=== PATIENT | male | born 1960 | race Caucasian/White ===

== ENCOUNTER 2018-04-02 10:50 | Outpatient (CLI) | payer OTHER | END 2018-04-02 12:57 | disposition home or self-care (01) | LOC: LAB 10:50 | DX: E78.2 Mixed hyperlipidemia (principal); E55.9 Vitamin D deficiency, unspecified; Z12.5 Encounter for screening for malignant neoplasm of prostate; M79.1 Myalgia; N39.0 Urinary tract infection, site not specified; Z13.6 Encounter for screening for cardiovascular disorders; Z12.11 Encounter for screening for malignant neoplasm of colon; Z11.3 Encounter for screening for infections with a predominantly sexual mode of transmission; E06.9 Thyroiditis, unspecified; M15.0 Primary generalized (osteo)arthritis; Z13.1 Encounter for screening for diabetes mellitus; E83.42 Hypomagnesemia ==

== ENCOUNTER 2019-12-20 15:41 | Outpatient (CLI) | payer OTHER | END 2019-12-20 15:46 | disposition home or self-care (01) | LOC: RAD 15:41 | PROVIDERS: ATTEND Internal Medicine | DX: S63.20 Unspecified subluxation of other finger (principal); S63.219A Subluxation of metacarpophalangeal joint of unspecified finger, initial encounter ==

== ENCOUNTER → 2020-03-16 09:05 | Outpatient (CLI) | payer OTHER | END | disposition home or self-care (01) | LOC: LAB 09:05 | PROVIDERS: ATTEND Internal Medicine | DX: N40.1 Benign prostatic hyperplasia with lower urinary tract symptoms (principal); Z20.828 Contact with and (suspected) exposure to other viral communicable diseases; E78.89 Other lipoprotein metabolism disorders; E55.9 Vitamin D deficiency, unspecified; Z13.818 Encounter for screening for other digestive system disorders; I10 Essential (primary) hypertension; E06.5 Other chronic thyroiditis; N39.0 Urinary tract infection, site not specified; Z11.3 Encounter for screening for infections with a predominantly sexual mode of transmission; K59.00 Constipation, unspecified; M25.50 Pain in unspecified joint; R73.09 Other abnormal glucose ==

== ENCOUNTER 2020-03-21 10:00 | Outpatient (CLI) | payer OTHER | END 2020-03-21 15:49 | disposition home or self-care (01) | LOC: PPH VACUNA 10:00 | DX: Z23 Encounter for immunization (principal) ==

== ENCOUNTER 2020-11-02 12:16 | Outpatient (CLI) | payer OTHER | END 2020-11-02 12:21 | disposition home or self-care (01) | LOC: LAB 12:16 | PROVIDERS: ATTEND Internal Medicine | DX: Z03.818 Encounter for observation for suspected exposure to other biological agents ruled out (principal) ==

== ENCOUNTER 2021-02-08 10:30 | Outpatient (CLI) | payer OTHER | END 2021-02-08 20:21 | disposition home or self-care (01) | LOC: LAB 10:30 | DX: I10 Essential (primary) hypertension (principal); N39.0 Urinary tract infection, site not specified; E06.5 Other chronic thyroiditis; E78.89 Other lipoprotein metabolism disorders; N40.1 Benign prostatic hyperplasia with lower urinary tract symptoms ==

== ENCOUNTER 2021-03-21 08:00 | Outpatient (CLI) | payer OTHER | END 2021-03-21 08:30 | disposition home or self-care (01) | LOC: PPH VACUNA 08:00 | PROVIDERS: ATTEND Emergency Medicine Pediatric Emergency Medicine | DX: Z23 Encounter for immunization (principal) ==

== ENCOUNTER 2021-07-05 09:18 | Outpatient (CLI) | payer OTHER | END 2021-07-05 09:19 | disposition home or self-care (01) | LOC: LAB 09:18 | PROVIDERS: ATTEND Internal Medicine | DX: E78.89 Other lipoprotein metabolism disorders (principal); K76.0 Fatty (change of) liver, not elsewhere classified; M15.0 Primary generalized (osteo)arthritis ==

== ENCOUNTER 2021-09-27 08:36 | Outpatient (CLI) | payer OTHER | END 2021-09-27 08:49 | disposition home or self-care (01) | LOC: LAB 08:36 | PROVIDERS: ATTEND Internal Medicine | DX: E78.9 Disorder of lipoprotein metabolism, unspecified (principal); E55.9 Vitamin D deficiency, unspecified; I10 Essential (primary) hypertension; N39.0 Urinary tract infection, site not specified ==

== ENCOUNTER 2021-11-11 13:15 | Outpatient (CLI) | payer OTHER | END 2021-11-11 13:45 | disposition home or self-care (01) | LOC: PPH VACUNA 13:15 | PROVIDERS: ATTEND Emergency Medicine Pediatric Emergency Medicine | DX: Z23 Encounter for immunization (principal) ==

== ENCOUNTER 2022-02-07 10:01 | Outpatient (CLI) | payer OTHER | END 2022-02-07 10:13 | disposition home or self-care (01) | LOC: LAB 10:01 | PROVIDERS: ATTEND Internal Medicine | DX: E78.2 Mixed hyperlipidemia (principal); I10 Essential (primary) hypertension; N39.0 Urinary tract infection, site not specified ==

== ENCOUNTER 2022-03-09 10:26 | Outpatient (CLI) | payer OTHER | END 2022-03-09 10:36 | disposition home or self-care (01) | LOC: PPH VACUNA 10:26 | PROVIDERS: ATTEND Emergency Medicine Pediatric Emergency Medicine | DX: Z23 Encounter for immunization (principal) ==

== ENCOUNTER 2022-05-23 10:40 | Outpatient (CLI) | payer OTHER | END 2022-05-23 11:09 | disposition home or self-care (01) | LOC: LAB 10:40 | PROVIDERS: ATTEND Internal Medicine | DX: E78.3 Hyperchylomicronemia (principal); R73.9 Hyperglycemia, unspecified; E78.6 Lipoprotein deficiency; N39.0 Urinary tract infection, site not specified; E06.9 Thyroiditis, unspecified; E78.2 Mixed hyperlipidemia; E78.49 Other hyperlipidemia ==

== ENCOUNTER 2022-11-28 09:41 | Outpatient (CLI) | payer OTHER | END 2022-11-28 10:09 | disposition home or self-care (01) | LOC: LAB 09:41 | PROVIDERS: ATTEND Internal Medicine | DX: N40.1 Benign prostatic hyperplasia with lower urinary tract symptoms (principal); I10 Essential (primary) hypertension; E11.9 Type 2 diabetes mellitus without complications; R79.82 Elevated C-reactive protein (CRP); E78.9 Disorder of lipoprotein metabolism, unspecified; N39.0 Urinary tract infection, site not specified; E78.41 Elevated Lipoprotein(a); Z12.11 Encounter for screening for malignant neoplasm of colon ==

== ENCOUNTER 2023-06-15 01:50 | Outpatient (CLI) | payer OTHER | END 2023-06-15 02:00 | disposition home or self-care (01) | LOC: PPH VACUNA 01:50 | PROVIDERS: ATTEND Emergency Medicine Pediatric Emergency Medicine | DX: Z23 Encounter for immunization (principal) | CPT/HCPCS: 90686; G0008 ==

== ENCOUNTER → 2023-07-24 09:49 | Outpatient (CLI) | payer OTHER ==
[2023-07-24 12:39] LABS: HEMATOCRIT 43.3 % (39.0-48.0); MEAN CELL VOLUME 88.6 fL (80.0-100.00); MEAN CORPUSCULAR HEMOGLOBIN 30.6 pg (27.00-32.0); MEAN CORPUSCULAR HGB CONC 34.6 g/dl (32.0-36.0); PLATELET COUNT 251 K/uL (150-450); RED BLOOD COUNT 4.89 M/uL (4.00-6.00); RED CELL DISTRIBUTION WIDTH 12.9 % (11.5-14.5)
[2023-07-24 13:12] LABS: URINE APPEARANCE Clear; URINE BILIRRUBIN Negative (NEGATIVE); URINE BLOOD Negative; URINE COLOR Yellow; URINE GLUCOSE Negative (NEGATIVE); URINE LEUKOCYTE Negative; URINE NITRATE Negative; URINE PROTEIN Negative (NEGATIVE); URINE UROBILINOGEN 0.2 E.U./dl
[2023-07-24 13:18] LABS: URINE BACTERIA 2.5 uL (0.0-1933); URINE EPITHELIAL CELLS 0.1 uL (0.0-38.8); URINE RBC 1.7 uL (0.0-20.8); URINE WBC 0.6 uL (0.0-23.2)
[2023-07-24 13:24] LABS: ALBUMIN 4.1 gm/dL (3.4-5.0); BILIRUBIN TOTAL 1.18 mg/dL (0.3-1.2); CALCIUM 9.2 mg/dL (8.5-10.1); CHOL HDL RATIO 3.7 (0-5.0); CREATININE SERUM 0.88 mg/dL (0.70-1.30); GFR 87.75; GLOBULINA 3.8 G/DL (2.4-3.5); POTASSIUM 4.07 mEq/L (3.5-5.1); PROSTATIC SPECIFIC ANTIGEN 2.17 NG/ML (0.010-4.00); TOTAL PROTEIN 7.9 gm/dL (6.4-8.2); TSH 0.58 uIU/mL (0.358-3.74)
[2023-07-24 13:30] LABS: C-REACTIVE PROTEIN 0.31 MG/DL (0.00-0.29)
== END | disposition home or self-care (01) ==
LOC: LAB 09:49
PROVIDERS: ATTEND Internal Medicine
DX: I10 Essential (primary) hypertension (principal); N39.0 Urinary tract infection, site not specified; D64.9 Anemia, unspecified; R73.9 Hyperglycemia, unspecified; E78.9 Disorder of lipoprotein metabolism, unspecified; Z01.89 Encounter for other specified special examinations; Z11.3 Encounter for screening for infections with a predominantly sexual mode of transmission; E78.41 Elevated Lipoprotein(a); E78.2 Mixed hyperlipidemia; E78.01 Familial hypercholesterolemia

== ENCOUNTER → 2024-04-07 12:16 | Outpatient (CLI) | payer OTHER ==
[2024-04-07 12:51] LABS: HEMATOCRIT 48.8 % (39.0-48.0); HEMOGLOBIN 16.9 g/dL (13-16.00); MEAN CELL VOLUME 89.8 fL (80.0-100.00); MEAN CORPUSCULAR HEMOGLOBIN 31.1 pg (27.00-32.0); MEAN CORPUSCULAR HGB CONC 34.7 g/dl (32.0-36.0); RED BLOOD COUNT 5.44 M/uL (4.00-6.00); RED CELL DISTRIBUTION WIDTH 12.9 % (11.5-14.5)
[2024-04-07 13:03] LABS: PLATELET COUNT 44 K/uL (150-450)
[2024-04-07 13:28] LABS: MANUAL PLATELET COUNT 68
== END | disposition home or self-care (01) ==
LOC: LAB 12:16
PROVIDERS: ATTEND Internal Medicine
DX: A90 Dengue fever [classical dengue] (principal)

== ENCOUNTER 2024-04-08 13:57 | Outpatient (CLI) | payer OTHER ==
[2024-04-08 14:43] LABS: HEMATOCRIT 45.7 % (39.0-48.0); HEMOGLOBIN 15.7 g/dL (13-16.00); MEAN CELL VOLUME 89.1 fL (80.0-100.00); MEAN CORPUSCULAR HEMOGLOBIN 30.7 pg (27.00-32.0); MEAN CORPUSCULAR HGB CONC 34.4 g/dl (32.0-36.0); RED BLOOD COUNT 5.12 M/uL (4.00-6.00); RED CELL DISTRIBUTION WIDTH 13.2 % (11.5-14.5)
[2024-04-08 15:54] LABS: PLATELET COUNT 71 K/uL (150-450)
[2024-04-08 16:28] LABS: MANUAL PLATELET COUNT 106
== END 2024-04-08 14:06 | disposition home or self-care (01) ==
LOC: LAB 13:57
PROVIDERS: ATTEND Internal Medicine
DX: A90 Dengue fever [classical dengue] (principal)

== ENCOUNTER 2024-04-10 12:54 | Outpatient (CLI) | payer OTHER ==
[2024-04-10 13:18] LABS: HEMATOCRIT 45.1 % (39.0-48.0); HEMOGLOBIN 15.6 g/dL (13-16.00); MEAN CELL VOLUME 89.9 fL (80.0-100.00); MEAN CORPUSCULAR HEMOGLOBIN 31.1 pg (27.00-32.0); MEAN CORPUSCULAR HGB CONC 34.6 g/dl (32.0-36.0); PLATELET COUNT 142 K/uL (150-450); RED BLOOD COUNT 5.02 M/uL (4.00-6.00); RED CELL DISTRIBUTION WIDTH 13.3 % (11.5-14.5)
[2024-04-10 14:01] LABS: MANUAL PLATELET COUNT 304
== END 2024-04-10 13:05 | disposition home or self-care (01) ==
LOC: LAB 12:54
PROVIDERS: ATTEND Internal Medicine
DX: A90 Dengue fever [classical dengue] (principal)

== ENCOUNTER 2024-04-20 10:22 | Outpatient (CLI) | payer OTHER ==
[2024-04-20 11:05] LABS: HEMATOCRIT 44.4 % (39.0-48.0); HEMOGLOBIN 15.2 g/dL (13-16.00); MEAN CELL VOLUME 89.3 fL (80.0-100.00); MEAN CORPUSCULAR HEMOGLOBIN 30.5 pg (27.00-32.0); MEAN CORPUSCULAR HGB CONC 34.2 g/dl (32.0-36.0); PLATELET COUNT 425 K/uL (150-450); RED BLOOD COUNT 4.97 M/uL (4.00-6.00); RED CELL DISTRIBUTION WIDTH 13.5 % (11.5-14.5)
[2024-04-20 11:39] LABS: MANUAL PLATELET COUNT 730
[2024-04-20 12:14] LABS: ALBUMIN 3.2 gm/dL (3.4-5.0); BILIRUBIN TOTAL 0.68 mg/dL (0.3-1.2); CALCIUM 8.3 mg/dL (8.5-10.1); CREATININE SERUM 0.92 mg/dL (0.70-1.30); GFR 83.36; GLOBULINA 5.2 G/DL (2.4-3.5); POTASSIUM 4.09 mEq/L (3.5-5.1); TOTAL PROTEIN 8.4 gm/dL (6.4-8.2); TSH 1.46 uIU/mL (0.358-3.74)
== END 2024-04-20 14:32 | disposition home or self-care (01) ==
LOC: LAB 10:22
PROVIDERS: ATTEND Internal Medicine
DX: R73.09 Other abnormal glucose (principal); E06.9 Thyroiditis, unspecified; A91 Dengue hemorrhagic fever; R06.02 Shortness of breath; I10 Essential (primary) hypertension; D84.9 Immunodeficiency, unspecified

== ENCOUNTER 2024-04-20 10:42 | Outpatient (CLI) | payer OTHER | END 2024-04-20 11:05 | disposition home or self-care (01) | LOC: TOM 10:42 | PROVIDERS: ATTEND Radiology Diagnostic Radiology | DX: G44.85 Primary stabbing headache (principal); G44.89 Other headache syndrome; R06.02 Shortness of breath; R52 Pain, unspecified ==

== ENCOUNTER 2024-04-21 07:50 | Outpatient (CLI) | payer OTHER | END 2024-04-21 07:53 | disposition home or self-care (01) | LOC: NUCLEAR 07:50 | PROVIDERS: ATTEND Internal Medicine | DX: I20.9 Angina pectoris, unspecified (principal) ==

== ENCOUNTER 2024-04-24 08:53 | Outpatient (CLI) | payer OTHER ==
[2024-04-24 09:39] LABS: HEMATOCRIT 43.3 % (39.0-48.0); HEMOGLOBIN 14.9 g/dL (13-16.00); MEAN CELL VOLUME 88.5 fL (80.0-100.00); MEAN CORPUSCULAR HEMOGLOBIN 30.4 pg (27.00-32.0); MEAN CORPUSCULAR HGB CONC 34.4 g/dl (32.0-36.0); PLATELET COUNT 351 K/uL (150-450); RED BLOOD COUNT 4.89 M/uL (4.00-6.00); RED CELL DISTRIBUTION WIDTH 13.7 % (11.5-14.5)
[2024-04-24 10:13] LABS: MANUAL PLATELET COUNT 678
[2024-04-24 10:23] LABS: INR 1.08; PROTHROMBIN TIME 11.7 SECONDS (9.0-11.5)
[2024-04-24 10:52] LABS: ALBUMIN 3.2 gm/dL (3.4-5.0); BILIRUBIN TOTAL 0.95 mg/dL (0.3-1.2); CALCIUM 8.7 mg/dL (8.5-10.1); CREATININE SERUM 0.96 mg/dL (0.70-1.30); GFR 79.37; GLOBULINA 5.3 G/DL (2.4-3.5); POTASSIUM 4.3 mEq/L (3.5-5.1); TOTAL PROTEIN 8.5 gm/dL (6.4-8.2)
== END 2024-04-24 15:32 | disposition home or self-care (01) ==
LOC: LAB 08:53
PROVIDERS: ATTEND Internal Medicine
DX: R94.5 Abnormal results of liver function studies (principal); A90 Dengue fever [classical dengue]

== ENCOUNTER 2024-05-04 09:18 | Outpatient (CLI) | payer OTHER ==
[2024-05-04 09:56] LABS: HEMATOCRIT 41.7 % (39.0-48.0); HEMOGLOBIN 14.4 g/dL (13-16.00); MEAN CORPUSCULAR HEMOGLOBIN 30.4 pg (27.00-32.0); MEAN CORPUSCULAR HGB CONC 34.6 g/dl (32.0-36.0); PLATELET COUNT 340 K/uL (150-450); RED BLOOD COUNT 4.74 M/uL (4.00-6.00)
[2024-05-04 10:07] LABS: ERYTHROCYTE SEDIMENTATION RATE 28 mm/hr
[2024-05-04 10:56] LABS: ALBUMIN 3.2 gm/dL (3.4-5.0); BILIRUBIN TOTAL 0.78 mg/dL (0.3-1.2); CALCIUM 8.7 mg/dL (8.5-10.1); CREATININE SERUM 1.03 mg/dL (0.70-1.30); GFR 73.17; GLOBULINA 5.2 G/DL (2.4-3.5); POTASSIUM 4.74 mEq/L (3.5-5.1); TOTAL PROTEIN 8.4 gm/dL (6.4-8.2)
[2024-05-04 10:59] LABS: C-REACTIVE PROTEIN 1.5 MG/DL (0.00-0.29); FERRITIN 1134.1 NG/ML (26-388)
== END 2024-05-04 14:40 | disposition home or self-care (01) ==
LOC: LAB 09:18
DX: U07.1 COVID-19 (principal); R94.5 Abnormal results of liver function studies; R73.09 Other abnormal glucose; A90 Dengue fever [classical dengue]

== ENCOUNTER → 2024-06-24 08:24 | Outpatient (CLI) | payer OTHER ==
[2024-06-24 08:46] LABS: PH,URINE 6.5 (5.0-8.0); URINE APPEARANCE Clear; URINE BILIRRUBIN Negative (NEGATIVE); URINE BLOOD Negative; URINE COLOR Yellow; URINE GLUCOSE Negative (NEGATIVE); URINE KETONE Negative (NEGATIVE); URINE LEUKOCYTE Negative; URINE NITRATE Negative; URINE PROTEIN Negative (NEGATIVE); URINE UROBILINOGEN 0.2 E.U./dl
[2024-06-24 08:49] LABS: URINE BACTERIA 6.1 uL (0.0-1933); URINE RBC 5.8 uL (0.0-20.8)
[2024-06-24 08:53] LABS: URINE WBC 1.5 uL (0.0-23.2)
[2024-06-24 09:15] LABS: HEMATOCRIT 43.1 % (39.0-48.0); HEMOGLOBIN 14.9 g/dL (13-16.00); MEAN CELL VOLUME 88.5 fL (80.0-100.00); MEAN CORPUSCULAR HEMOGLOBIN 30.6 pg (27.00-32.0); MEAN CORPUSCULAR HGB CONC 34.6 g/dl (32.0-36.0); PLATELET COUNT 231 K/uL (150-450); RED BLOOD COUNT 4.87 M/uL (4.00-6.00); RED CELL DISTRIBUTION WIDTH 14.5 % (11.5-14.5)
[2024-06-24 09:36] LABS: ALKALINE PHOSPHATASE 73 U/L (50-136); ALT/SGPT 23 U/L (12-78); ANION GAP 7 (10.0-20.0); AST/SGOT 22 U/L (15-37); BILIRUBIN TOTAL 1.03 mg/dL (0.3-1.2); BLOOD UREA NITROGEN 16 mg/dL (7-18); BUN CREA RATIO 14 (7.0-25.0); CALCIUM 9.2 mg/dL (8.5-10.1); CARBON DIOXIDE 29 mEq/L (21-32); CHLORIDE 107 mmol/L (98-107); CHOLESTEROL 208 mg/dL (0-200); CREATININE SERUM 1.15 mg/dL (0.70-1.30); GAMMA GLUTAMIL TRANSFERASE 43 U/L (15-85); GFR 64.44; GLUCOSE FASTING 118 mg/dL (65-100); HDL 52 mg/dl (40-60); LDL 120 mg/dl (0-130); OSMOLALITY SERUM 280 MOSM/KG (275-295); POTASSIUM 4.47 mEq/L (3.5-5.1); SODIUM 139 mmol/L (136-145); TRIGLYCERIDES 178 mg/dL (0-150); VLDL 35 (0-39)
[2024-06-24 09:38] LABS: C-REACTIVE PROTEIN < 0.29 MG/DL (0.00-0.29)
== END | disposition home or self-care (01) ==
LOC: LAB 08:24
PROVIDERS: ATTEND Internal Medicine
DX: R73.9 Hyperglycemia, unspecified (principal); I10 Essential (primary) hypertension; E78.49 Other hyperlipidemia; N39.0 Urinary tract infection, site not specified; E55.9 Vitamin D deficiency, unspecified

== ENCOUNTER 2024-09-16 09:07 | Outpatient (CLI) | payer OTHER ==
[2024-09-16 09:54] LABS: HEMATOCRIT 43.4 % (39.0-48.0); HEMOGLOBIN 14.5 g/dL (13-16.00); MEAN CORPUSCULAR HEMOGLOBIN 30.1 pg (27.00-32.0); MEAN CORPUSCULAR HGB CONC 33.4 g/dl (32.0-36.0); PLATELET COUNT 212 K/uL (150-450); RED BLOOD COUNT 4.83 M/uL (4.00-6.00); RED CELL DISTRIBUTION WIDTH 13.2 % (11.5-14.5)
[2024-09-16 10:00] LABS: PH,URINE 5.5 (5.0-8.0); URINE APPEARANCE Clear; URINE BILIRRUBIN Negative (NEGATIVE); URINE BLOOD Negative; URINE COLOR Yellow; URINE GLUCOSE Negative (NEGATIVE); URINE KETONE Negative (NEGATIVE); URINE LEUKOCYTE Negative; URINE NITRATE Negative; URINE PROTEIN Negative (NEGATIVE); URINE UROBILINOGEN 0.2 E.U./dl
[2024-09-16 10:04] LABS: URINE WBC 4.5 uL (0.0-23.2)
[2024-09-16 10:12] LABS: URINE BACTERIA 1.2 uL (0.0-1933); URINE EPITHELIAL CELLS 0.4 uL (0.0-38.8); URINE RBC 1.9 uL (0.0-20.8)
[2024-09-16 10:27] LABS: ALBUMIN 3.7 gm/dL (3.4-5.0); ALKALINE PHOSPHATASE 68 U/L (50-136); ALT/SGPT 27 U/L (12-78); ANION GAP 6 (10.0-20.0); AST/SGOT 25 U/L (15-37); BILIRUBIN TOTAL 0.81 mg/dL (0.3-1.2); BLOOD UREA NITROGEN 20 mg/dL (7-18); BUN CREA RATIO 18 (7.0-25.0); CALCIUM 8.9 mg/dL (8.5-10.1); CARBON DIOXIDE 30 mEq/L (21-32); CHLORIDE 109 mmol/L (98-107); CHOL HDL RATIO 4.6 (0-5.0); CHOLESTEROL 209 mg/dL (0-200); FERRITIN 24.6 NG/ML (26-388); GFR 67.61; GLOBULINA 3.7 G/DL (2.4-3.5); GLUCOSE FASTING 104 mg/dL (65-100); HDL 45 mg/dl (40-60); OSMOLALITY SERUM 284 MOSM/KG (275-295); POTASSIUM 4.24 mEq/L (3.5-5.1); SODIUM 141 mmol/L (136-145); TOTAL PROTEIN 7.4 gm/dL (6.4-8.2)
[2024-09-16 10:49] LABS: C-REACTIVE PROTEIN < 0.29 MG/DL (0.00-0.29); LDL 117 mg/dl (0-130); TRIGLYCERIDES 235 mg/dL (0-150); VLDL 47 (0-39)
[2024-09-19 13:09] LABS: IMM A 283 mg/dL (61-437); IMM G 1408 mg/dL (603-1613); IMM M 137 mg/dL (20-172)
== END 2024-09-16 09:13 | disposition home or self-care (01) ==
LOC: LAB 09:07
PROVIDERS: ATTEND Internal Medicine
DX: E78.9 Disorder of lipoprotein metabolism, unspecified (principal); E78.49 Other hyperlipidemia; I10 Essential (primary) hypertension; E55.9 Vitamin D deficiency, unspecified; M15.9 Polyosteoarthritis, unspecified; N39.0 Urinary tract infection, site not specified; N40.1 Benign prostatic hyperplasia with lower urinary tract symptoms; R73.9 Hyperglycemia, unspecified; R76.8 Other specified abnormal immunological findings in serum

== ENCOUNTER 2024-12-09 09:07 | Outpatient (CLI) | payer OTHER ==
[2024-12-09 10:29] LABS: PH,URINE 5.5 (5.0-8.0); URINE APPEARANCE Clear; URINE BILIRRUBIN Negative (NEGATIVE); URINE BLOOD Negative; URINE COLOR Yellow; URINE GLUCOSE Negative (NEGATIVE); URINE KETONE Negative (NEGATIVE); URINE LEUKOCYTE Trace; URINE NITRATE Negative; URINE PROTEIN Negative (NEGATIVE); URINE UROBILINOGEN 0.2 E.U./dl
[2024-12-09 10:32] LABS: URINE BACTERIA 7.3 uL (0.0-1933); URINE RBC 2.6 uL (0.0-20.8); URINE WBC 2.6 uL (0.0-23.2)
[2024-12-09 10:51] LABS: BASO % 0.7 % (0.1-1.2); EOS # 0.08 (0.04-0.54); EOS % 1.8 % (0.7-7.0); HEMOGLOBIN 14.3 g/dL (13.7-17.5); LYMPH # 1.39 (1.18-3.74); LYMPH % 31.5 % (19.3-53.1); MEAN CORPUSCULAR HEMOGLOBIN 30.3 pg (25.6-32.2); MONO # 0.28 (0.24-0.82); MONO % 6.3 % (4.7-12.5); NEUT # 2.61 (1.56-6.13); NEUT % 59.2 % (34.0-71.1); PLATELET COUNT 210 K/uL (163-369); RED BLOOD COUNT 4.72 M/uL (4.63-6.08); RED CELL DISTRIBUTION WIDTH 12.2 % (11.6-14.4)
[2024-12-09 11:00] LABS: URINE EPITHELIAL CELLS 1.1 uL (0.0-38.8)
[2024-12-09 11:25] LABS: ALBUMIN 3.8 gm/dL (3.4-5.0); ALKALINE PHOSPHATASE 68 U/L (50-136); ALT/SGPT 26 U/L (12-78); ANION GAP 8 (10.0-20.0); AST/SGOT 28 U/L (15-37); BILIRUBIN TOTAL 0.69 mg/dL (0.3-1.2); BLOOD UREA NITROGEN 20 mg/dL (7-18); BUN CREA RATIO 21 (7.0-25.0); CALCIUM 8.9 mg/dL (8.5-10.1); CARBON DIOXIDE 30 mEq/L (21-32); CHLORIDE 111 mmol/L (98-107); CHOL HDL RATIO 3.6 (0-5.0); CHOLESTEROL 153 mg/dL (0-200); CREATININE SERUM 0.96 mg/dL (0.70-1.30); GFR 79.11; GLOBULINA 3.6 G/DL (2.4-3.5); GLUCOSE FASTING 98 mg/dL (65-100); HDL 42 mg/dl (40-60); LDL 76 mg/dl (0-130); OSMOLALITY SERUM 289 MOSM/KG (275-295); PHOSPHOKINASE CREATININE 305 U/L (39-308); POTASSIUM 4.71 mEq/L (3.5-5.1); SODIUM 144 mmol/L (136-145); TOTAL PROTEIN 7.4 gm/dL (6.4-8.2); TRIGLYCERIDES 174 mg/dL (0-150); VLDL 34 (0-39)
[2024-12-09 11:29] LABS: C-REACTIVE PROTEIN < 0.29 MG/DL (0.00-0.29)
== END 2024-12-09 09:13 | disposition home or self-care (01) ==
LOC: LAB 09:07
PROVIDERS: ATTEND Internal Medicine
DX: R73.09 Other abnormal glucose (principal); R79.82 Elevated C-reactive protein (CRP); E78.2 Mixed hyperlipidemia; M79.602 Pain in left arm; M79.10 Myalgia, unspecified site; N39.0 Urinary tract infection, site not specified; I10 Essential (primary) hypertension; E78.41 Elevated Lipoprotein(a)